=== PATIENT | female | born 1945 | race Caucasian/White ===

== ENCOUNTER → 2017-04-08 | Outpatient (CLI) | payer MEDICARE, BC ==
[2016-06-24 14:01] VITALS: BP 166/98
[~2017-04-08] MED LIST: ALBUTEROL0.09 MG/A4 IH; BACTRIM 400 MG-1 TA1 PO; BENADRYL ALLERG25 M2 PO; BONIVA150 MG PO; CEPHALEXIN500 M1 PO; CITRACAL PLUS1 TAB PO; DUO-KAPS1 CAP PO; HYDROCHLOROTH12.5 M2 PO; MOTRIN IB200 M1 PO; PROAIR RESPICL90 MCG IH; PULMICORT0.5 MG/2 M IH; RECLAST5 MG/100 M IV; SINGULAIR10 MG PO; ULTRAM 50MG TAB50 MG PO; VITAMIN D 50,1.25 MG PO; XOPENEX1.25 MG/0. IH
== END ==
LOC: LAB 09:41
DX: I10 Essential (primary) hypertension (principal); M81.0 Age-related osteoporosis without current pathological fracture; E78.2 Mixed hyperlipidemia; R20.2 Paresthesia of skin

== ENCOUNTER → 2017-04-23 | Outpatient (CLI) | payer MEDICARE, BC ==
[2016-06-24 14:01] VITALS: BP 166/98
== END ==
LOC: LAB 10:51
DX: M81.0 Age-related osteoporosis without current pathological fracture (principal)

== ENCOUNTER → 2017-09-26 | Outpatient (CLI) | payer MEDICARE, BC ==
[2016-06-24 14:01] VITALS: BP 166/98
[2017-09-26 08:36] LABS: BUN/CREATININE RATIO 50.1 (6.0-26.0); CALCIUM 8.8 mg/dL (8.4-10.2); POTASSIUM 3.8 mmol/L (3.6-5.0)
== END ==
LOC: LAB 08:09
PROVIDERS: Internal Medicine
DX: I10 Essential (primary) hypertension (principal); M81.0 Age-related osteoporosis without current pathological fracture; E55.9 Vitamin D deficiency, unspecified

== ENCOUNTER → 2018-06-19 | Outpatient (CLI) | payer MEDICARE, BC ==
[2016-06-24 14:01] VITALS: BP 166/98
[2018-06-19 11:09] LABS: HEMATOCRIT 47.7 % (37.0-47.0); HEMOGLOBIN 16.1 g/dL (12.5-16.0); LYMPH# 2.3 (1.50-4.00); MEAN CELL VOLUME 94 fl (78-100); MEAN CORPUSCULAR HEMOGLOBIN 32 pg (27-31); MEAN CORPUSCULAR HGB CONC 34 g/dL (33-37); MEAN PLATELET VOLUME 10.9 fl (7.4-10.4); MONO # 0.6 (0.20-0.80); NEU # 2.7 (1.40-6.50); PLATELET COUNT 192 K/mm3 (130-400); RED BLOOD COUNT 5.08 M/mm3 (4.10-5.30); RED CELL DISTRIBUTION WIDTH 12.4 % (11.5-14.5); WHITE BLOOD COUNT 5.6 K/mm3 (4.8-10.8)
[2018-06-19 11:24] LABS: ALBUMIN 3.9 g/dL (3.5-5.0); BUN/CREATININE RATIO 32.2 (6.0-26.0); CALCIUM 8.8 mg/dL (8.4-10.2); TOTAL BILIRUBIN 0.8 mg/dL (0.2-1.3)
[2018-06-19 11:26] LABS: POTASSIUM 4.1 mmol/L (3.6-5.0)
[2018-06-19 12:11] LABS: ERYTHROCYTE SEDIMENTATION RATE 3 mm/hr (0-30)
== END ==
LOC: LAB 10:46
PROVIDERS: Internal Medicine
DX: M81.0 Age-related osteoporosis without current pathological fracture (principal); E78.5 Hyperlipidemia, unspecified; I10 Essential (primary) hypertension

== ENCOUNTER 2018-08-05 09:18 | Emergency (ER) | payer MEDICARE, BC ==
[~2018-08-05] VITALS: Ht 160 cm; Wt 68.2 kg
[2018-08-05 09:53] LABS: HEMOGLOBIN 14.9 g/dL (12.5-16.0); MEAN CELL VOLUME 96 fl (78-100); MEAN CORPUSCULAR HEMOGLOBIN 32 pg (27-31); MEAN CORPUSCULAR HGB CONC 33 g/dL (33-37); MEAN PLATELET VOLUME 10.3 fl (7.4-10.4); PLATELET COUNT 249 K/mm3 (130-400); RED BLOOD COUNT 4.71 M/mm3 (4.10-5.30); RED CELL DISTRIBUTION WIDTH 12.3 % (11.5-14.5); WHITE BLOOD COUNT 14.8 K/mm3 (4.8-10.8)
[2018-08-05 09:56] LABS: BAND 4 % (0-10)
[2018-08-05 09:57] LABS: LYMPHOCYTE 10 % (20-51); MONOCYTE 17 % (3-10); NEUTROPHILS 67 % (42-75)
[2018-08-05 10:03] LABS: ALBUMIN 3.7 g/dL (3.5-5.0); CALCIUM 8.3 mg/dL (8.4-10.2); POTASSIUM 4.6 mmol/L (3.6-5.0); TOTAL BILIRUBIN 1.9 mg/dL (0.2-1.3); TOTAL PROTEIN 6.9 g/dL (6.3-8.2)
[2018-08-05] MEDS ORDERED: VITAMIN D50000 UNIT PO (10:12)
[2018-08-05] MEDS ORDERED: ZITHROMAX 250M250 MG PO (11:22)
[2018-08-05] MEDS ORDERED: PREDNISONE20 M1 PO (11:22)
[2018-08-05] MEDS ORDERED: ALBUTEROL2.5 MG/3 M IH (11:22)
[2018-08-05] MEDS ORDERED: IPRATROPIUM BROM3 M1 IH (11:22)
[2018-08-05 11:41] VITALS: BP 151/62
[2018-08-05 23:44] LABS: HEPATITIS C ANTIBODY Negative (Negative)
== END 2018-08-05 11:48 | disposition home or self-care (01) ==
LOC: ED 09:18
PROVIDERS: Nurse Practitioner Primary Care
DX: J45.901 Unspecified asthma with (acute) exacerbation (principal); J18.9 Pneumonia, unspecified organism; Z79.899 Other long term (current) drug therapy; R60.0 Localized edema; R74.8 Abnormal levels of other serum enzymes
CPT/HCPCS: J7512

== ENCOUNTER → 2019-09-08 | Outpatient (CLI) | payer MEDICARE, BC ==
[~2019-09-08] MED LIST changes: +ALBUTEROL2.5 MG/3 M IH; +IPRATROPIUM BROM3 M1 IH; +PREDNISONE20 M1 PO; +VITAMIN D50000 UNIT PO; +ZITHROMAX 250M250 MG PO
[2019-09-08 14:50] LABS: HEMATOCRIT 49.3 % (37.0-47.0); HEMOGLOBIN 16.2 g/dL (12.5-16.0); MEAN CELL VOLUME 95 fl (78-100); MEAN CORPUSCULAR HEMOGLOBIN 31 pg (27-31); MEAN CORPUSCULAR HGB CONC 33 g/dL (33-37); MEAN PLATELET VOLUME 10.3 fl (7.4-10.4); MONO # 1.2 (0.20-0.80); NEU # 6.9 (1.40-6.50); PLATELET COUNT 207 K/mm3 (130-400); RED BLOOD COUNT 5.21 M/mm3 (4.10-5.30)
[2019-09-08 15:07] LABS: ALBUMIN 3.9 g/dL (3.4-4.8); POTASSIUM 3.5 mmol/L (3.5-5.1)
[2019-09-08 15:08] LABS: CALCIUM 9.4 mg/dL (8.3-10.5)
[2019-09-08 15:11] LABS: TOTAL BILIRUBIN 1.3 mg/dL (0.2-1.2)
[2019-09-08 15:32] LABS: LYMPH# 4.8 (1.50-4.00)
[2019-09-08 17:00] LABS: ERYTHROCYTE SEDIMENTATION RATE 5 mm/hr (0-30)
== END ==
LOC: LAB 14:29
PROVIDERS: Internal Medicine
DX: I10 Essential (primary) hypertension (principal); M81.0 Age-related osteoporosis without current pathological fracture; E78.5 Hyperlipidemia, unspecified

== ENCOUNTER → 2021-03-06 | Outpatient (CLI) | payer MEDICARE, BC ==
[2021-03-06 10:30] LABS: HEMOGLOBIN 16.9 g/dL (12.5-16.0); LYMPH# 2.3 (1.50-4.00); MEAN CELL VOLUME 95 fl (78-100); MEAN CORPUSCULAR HEMOGLOBIN 31 pg (27-31); MEAN CORPUSCULAR HGB CONC 33 g/dL (33-37); MEAN PLATELET VOLUME 11.4 fl (7.4-10.4); MONO # 0.6 (0.20-0.80); NEU # 3.5 (1.40-6.50); PLATELET COUNT 185 K/mm3 (130-400); RED CELL DISTRIBUTION WIDTH 12.4 % (11.5-14.5); WHITE BLOOD COUNT 6.4 K/mm3 (4.8-10.8)
[2021-03-06 10:42] LABS: POTASSIUM 4.1 mmol/L (3.5-5.1)
[2021-03-06 10:43] LABS: ALBUMIN 4.2 g/dL (3.4-4.8)
[2021-03-06 10:44] LABS: CALCIUM 10.1 mg/dL (8.3-10.5)
[2021-03-06 10:45] LABS: TOTAL PROTEIN 7.5 g/dL (6.2-8.1)
[2021-03-06 10:47] LABS: TOTAL BILIRUBIN 0.9 mg/dL (0.2-1.2)
[2021-03-06 12:56] LABS: ERYTHROCYTE SEDIMENTATION RATE 10 mm/hr (0-30)
== END ==
LOC: LAB 09:53
PROVIDERS: Internal Medicine
DX: Z12.39 Encounter for other screening for malignant neoplasm of breast (principal); E78.5 Hyperlipidemia, unspecified; I10 Essential (primary) hypertension; K90.9 Intestinal malabsorption, unspecified; I48.91 Unspecified atrial fibrillation; M81.0 Age-related osteoporosis without current pathological fracture

== ENCOUNTER → 2021-03-14 | Outpatient (CLI) | payer MEDICARE, BC | LOC: RAD 12:40 | DX: S90.455A Superficial foreign body, left lesser toe(s), initial encounter (principal); M79.89 Other specified soft tissue disorders; M79.672 Pain in left foot ==

== ENCOUNTER → 2021-03-16 | Outpatient (CLI) | payer MEDICARE, BC | LOC: RAD 10:33 | DX: I48.0 Paroxysmal atrial fibrillation (principal) ==

== ENCOUNTER → 2021-08-02 | Outpatient (CLI) | payer MEDICARE, BC ==
[2021-08-02 15:04] LABS: MAGNESIUM 1.8 mg/dL (1.60-2.60)
[2021-08-03 08:03] LABS: POTASSIUM 4.9 mmol/L (3.5-5.1)
[2021-08-03 08:04] LABS: ALBUMIN 3.8 g/dL (3.4-4.8)
[2021-08-03 08:06] LABS: TOTAL PROTEIN 6.6 g/dL (6.2-8.1)
[2021-08-03 08:07] LABS: TOTAL BILIRUBIN 0.6 mg/dL (0.2-1.2)
[2021-08-03 08:12] LABS: DIGOXIN 0.7 ng/mL (0.8-2.0)
== END ==
LOC: LAB 13:18
PROVIDERS: Psychiatry & Neurology Psychiatry
DX: Z51.81 Encounter for therapeutic drug level monitoring (principal)

== ENCOUNTER → 2021-09-08 | Outpatient (CLI) | payer MEDICARE, BC ==
[2021-09-08 09:12] LABS: BASO # 0.01 K/mm3 (0.02-0.10); HEMATOCRIT 46.5 % (37.0-47.0); HEMOGLOBIN 15.3 g/dL (12.5-16.0); LYMPH# 1.74 K/mm3 (1.50-4.00); MEAN CELL VOLUME 95 fl (78-100); MEAN CORPUSCULAR HEMOGLOBIN 31 pg (27-31); MEAN CORPUSCULAR HGB CONC 33 g/dL (33-37); MEAN PLATELET VOLUME 10.6 fl (7.4-10.4); MONO # 0.59 K/mm3 (0.20-0.80); NEU # 4.22 K/mm3 (1.40-6.50); PLATELET COUNT 205 K/mm3 (130-400); RED BLOOD COUNT 4.89 M/mm3 (4.10-5.30); WHITE BLOOD COUNT 6.6 K/mm3 (4.8-10.8)
[2021-09-08 09:26] LABS: POTASSIUM 3.9 mmol/L (3.5-5.1)
[2021-09-08 09:27] LABS: CALCIUM 9.5 mg/dL (8.3-10.5)
[2021-09-08 09:37] LABS: PROTHROMBIN TIME 11.6 SECONDS (9.0-12.0)
== END ==
LOC: LAB 08:42
PROVIDERS: Nurse Practitioner
DX: I48.0 Paroxysmal atrial fibrillation (principal); I49.5 Sick sinus syndrome; Z20.822 Contact with and (suspected) exposure to COVID-19

== ENCOUNTER → 2022-03-01 | Outpatient (CLI) | payer MEDICARE, BC ==
[2022-03-01 12:28] LABS: HEMATOCRIT 42.5 % (37.0-47.0); HEMOGLOBIN 13.9 g/dL (12.5-16.0); MEAN PLATELET VOLUME 10.1 fl (7.4-10.4); RED BLOOD COUNT 4.29 M/mm3 (4.10-5.30); RED CELL DISTRIBUTION WIDTH 14.5 % (11.5-14.5); WHITE BLOOD COUNT 4.9 K/mm3 (4.8-10.8)
[2022-03-01 12:42] LABS: ALBUMIN 3.8 g/dL (3.4-4.8)
[2022-03-01 12:43] LABS: POTASSIUM 4.4 mmol/L (3.5-5.1)
[2022-03-01 12:44] LABS: CALCIUM 9.4 mg/dL (8.3-10.5)
[2022-03-01 12:45] LABS: TOTAL PROTEIN 6.5 g/dL (6.2-8.1)
[2022-03-01 12:47] LABS: TOTAL BILIRUBIN 1.6 mg/dL (0.2-1.2)
== END ==
LOC: LAB 12:05
PROVIDERS: Internal Medicine Interventional Cardiology
DX: I50.32 Chronic diastolic (congestive) heart failure (principal)

== ENCOUNTER → 2022-03-23 | Outpatient (CLI) | payer MEDICARE, BC ==
[2022-03-23 11:49] LABS: CALCIUM 8.7 mg/dL (8.3-10.5); HEMATOCRIT 47.7 % (37.0-47.0); HEMOGLOBIN 15.7 g/dL (12.5-16.0); MEAN PLATELET VOLUME 10.4 fl (7.4-10.4); POTASSIUM 3.9 mmol/L (3.5-5.1); RED BLOOD COUNT 4.9 M/mm3 (4.10-5.30); RED CELL DISTRIBUTION WIDTH 13.1 % (11.5-14.5); WHITE BLOOD COUNT 4.9 K/mm3 (4.8-10.8)
== END ==
LOC: LAB 11:16
PROVIDERS: Internal Medicine Interventional Cardiology
DX: Z01.812 Encounter for preprocedural laboratory examination (principal); I50.32 Chronic diastolic (congestive) heart failure

== ENCOUNTER → 2022-04-10 | Outpatient (CLI) | payer MEDICARE, BC ==
[2022-04-10 10:48] LABS: ALBUMIN 4.1 g/dL (3.4-4.8); BASO # 0.04 K/mm3 (0.02-0.10); HEMATOCRIT 50.3 % (37.0-47.0); HEMOGLOBIN 16.9 g/dL (12.5-16.0); LYMPH# 1.75 K/mm3 (1.50-4.00); MEAN CELL VOLUME 97 fl (78-100); MEAN CORPUSCULAR HEMOGLOBIN 33 pg (27-31); MEAN CORPUSCULAR HGB CONC 34 g/dL (33-37); MEAN PLATELET VOLUME 10.8 fl (7.4-10.4); MONO # 0.53 K/mm3 (0.20-0.80); NEU # 3.87 K/mm3 (1.40-6.50); PLATELET COUNT 213 K/mm3 (130-400); POTASSIUM 3.5 mmol/L (3.5-5.1); RED CELL DISTRIBUTION WIDTH 12.5 % (11.5-14.5); WHITE BLOOD COUNT 6.2 K/mm3 (4.8-10.8)
[2022-04-10 10:49] LABS: CALCIUM 9.4 mg/dL (8.3-10.5)
[2022-04-10 10:50] LABS: TOTAL PROTEIN 7.3 g/dL (6.2-8.1)
[2022-04-10 10:57] LABS: MAGNESIUM 1.84 mg/dL (1.60-2.60)
[2022-04-10 11:58] LABS: ERYTHROCYTE SEDIMENTATION RATE 4 mm/hr (0-30)
== END ==
LOC: LAB 10:10
PROVIDERS: Internal Medicine
DX: Z12.39 Encounter for other screening for malignant neoplasm of breast (principal); E78.5 Hyperlipidemia, unspecified; I10 Essential (primary) hypertension; M47.896 Other spondylosis, lumbar region; J45.40 Moderate persistent asthma, uncomplicated; G47.33 Obstructive sleep apnea (adult) (pediatric); M81.0 Age-related osteoporosis without current pathological fracture; K90.0 Celiac disease

== ENCOUNTER → 2022-04-11 | Outpatient (CLI) | payer MEDICARE, BC | LOC: MAMMO 09:48 | DX: Z12.31 Encounter for screening mammogram for malignant neoplasm of breast (principal); M81.0 Age-related osteoporosis without current pathological fracture ==

== ENCOUNTER → 2022-04-11 | Outpatient (CLI) | payer MEDICARE, BC | LOC: MAMMO 09:49 | DX: Z12.31 Encounter for screening mammogram for malignant neoplasm of breast (principal); M81.0 Age-related osteoporosis without current pathological fracture ==

== ENCOUNTER → 2022-05-22 | Outpatient (CLI) | payer MEDICARE, BC ==
[~2022-05-22] VITALS: Ht 160 cm; Wt 68.2 kg
[~2022-05-22] MED LIST changes: +BYSTOLIC5 MG PO; +COZAAR25 M1 PO; +LASIX20 M1 PO; +VITAMIN D21250 MCG PO; +XARELTO20 MG PO
[2022-05-22 11:34] VITALS: BP 172/96
== END ==
LOC: AMSURD 11:02
DX: M81.0 Age-related osteoporosis without current pathological fracture (principal)
CPT/HCPCS: J0897

== ENCOUNTER → 2022-05-29 | Outpatient (CLI) | payer MEDICARE, BC ==
[2022-05-29 12:22] LABS: POTASSIUM 4.4 mmol/L (3.5-5.1)
[2022-05-29 12:24] LABS: CALCIUM 9.5 mg/dL (8.3-10.5)
== END ==
LOC: LAB 11:47
DX: I50.32 Chronic diastolic (congestive) heart failure (principal)

== ENCOUNTER → 2022-07-13 | Outpatient (CLI) | payer MEDICARE, BC ==
[2022-07-13 14:50] LABS: HEMATOCRIT 51.9 % (37.0-47.0); HEMOGLOBIN 17.4 g/dL (12.5-16.0); RED BLOOD COUNT 5.54 M/mm3 (4.10-5.30); RED CELL DISTRIBUTION WIDTH 12.9 % (11.5-14.5); WHITE BLOOD COUNT 6.5 K/mm3 (4.8-10.8)
== END ==
LOC: LAB 14:04
PROVIDERS: Internal Medicine Interventional Cardiology
DX: I50.32 Chronic diastolic (congestive) heart failure (principal)

== ENCOUNTER → 2022-10-09 | Outpatient (CLI) | payer MEDICARE, BC | LOC: LAB 09:45 | DX: E78.5 Hyperlipidemia, unspecified (principal); K90.9 Intestinal malabsorption, unspecified; I10 Essential (primary) hypertension; M81.0 Age-related osteoporosis without current pathological fracture; I48.0 Paroxysmal atrial fibrillation ==